=== PATIENT | male | born 1985 | race Hispanic/Latino ===

== ENCOUNTER 2024-06-12 14:12 | Emergency (ER) | payer SELFPAY ==
[2024-06-12 14:13] VITALS: BP 115/82; PULSE 20; RESP 16; TEMP 36.6; O2SAT 100
[2024-06-12 16:52] VITALS: BP 132/86; PULSE 85; RESP 16; TEMP 37.2; O2SAT 99
--- NOTE | 2024-06-12 17:27 | EX.ED.VIS.UR ---
HPI HPI - URI History of Present Illness Chief Complaint: Cold Sx Informant: patient Narrative Narrative: Patient is a 30-year-old male denies any past medical history presenting with 2 days of flulike symptoms. He states started with fever and sore throat. He is also had some intermittent vomiting most recently early this morning. States he has been feeling cold. Daughter came in with similar symptoms the following day. She is also here for evaluation. States his cough is intermittently productive and other times dry. He has some mild body aches. Has been taking medicine for fevers but he is coming back. Also started taking some leftover amoxicillin with no relief. He last had Tylenol at 2 PM. Denies any diarrhea but states his stools have been looser than normal. Denies any blood in his vomit or stool. 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 Patient is not have a primary care doctor. No other complaints or concerns reported at this time. Did not receive his flu shot this year. ROS ROS ED Constitutional Constitutional ED: Reports chills and fever(s) ENT ENT ED: Reports sore throat; Denies ear pain or rhinorrhea Cardiovascular Cardiovascular: Denies chest pain Respiratory/Chest Respiratory/Chest: Reports cough; Denies dyspnea Gastrointestinal Gastrointestinal: Reports nausea and vomiting; Denies abdominal pain, constipation or diarrhea Musculoskeletal Musculoskeletal: Reports myalgias; Denies arthralgias Integumentary Denies rash Neurologic Neurologic: Denies weakness PFSH PFSH Medical History no medical history Home Medications ?Medication ?Instructions ?Recorded ?Last Taken ?Type ibuprofen 600 mg tablet 600 mg PO Q6H PRN PRN fever or 06/12/24 Unknown Rx pain #20 TABLETS ondansetron 4 mg disintegrating 4 mg PO Q8H PRN PRN Nausea #10 tabs 06/12/24 Unknown Rx tablet oseltamivir 75 mg capsule (Tamiflu) 75 mg PO BID 5 days #10 caps 06/12/24 Unknown Rx Allergy/AdvReac Type Severity Reaction Status Date / Time No Known Allergies Allergy Verified 06/12/24 14:14 Family History no significant family his Surgical History no surgical history Social History Smoking Status: Never smoker EXAM Physical Exam Const Vital Signs: 06/12/24 14:13 06/12/24 16:52 06/12/24 16:52 Temperature 97.8 F 98.9 F Temperature Source Temporal Oral Pulse Rate 20 L 85 Respiratory Rate 16 16 Respiratory Pattern Normal Blood Pressure 115/82 H 132/86 H Blood Pressure Mean 93 101 Pulse Ox 100 99 Oxygen Delivery Method Room Air Room Air Positive well nourished and well developed General Appearance ED: well developed and NAD HEENT Reports moist mucous membranes HEENT Narrative: Normal oropharynx. Normal tonsils with no swelling or exudate present. Eyes PERRL Neck no lymphadenopathy and supple Resp normal respiratory effort and clear to auscultation bilaterally Cardio Rate: regular rate Rhythm: regular rhythm GI non-tender and non-distended Extremity normal to inspection Neuro oriented x3 Sensorium / Orientation: alert Motor Exam: Negative for general weakness Psych mental status grossly normal Skin Rashes: no rashes MDM MDM MDM Narrative Medical decision making narrative: Patient evaluated for 2 days of flulike symptoms. Protocol includes viral syndrome, influenza and pneumonia. Protocol COVID swab obtained which is positive for influenza A. Patient is 99% on room air with clear breath sounds. I do not think he has pneumonia and I do not think chest x-ray is indicated at this time. He does look like he does not feel well but given a dose of Motrin. As he is within 48 hours of onset of symptoms will start on Tamiflu. Will also give a prescription for Zofran for further symptom control given his associated nausea. Will be given referral for primary care doctor. Given return precautions. Counseled importance of fever control as well as alternate ibuprofen and Tylenol and pushing fluids. Discharged home in stable condition. 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 Discharge Plan Triage Chief Complaint: Cold Sx ED Provider: Niurka Abreu Dx/Rx/DC Orders Clinical Impression: Influenza A Instructions: ED Influenza (Adult) Prescriptions: New oseltamivir [Tamiflu] 75 mg capsule 75 mg PO BID 5 Days Qty: 10 0RF ondansetron 4 mg tablet,disintegrating 4 mg PO Q8H PRN PRN (Reason: Nausea) Qty: 10 0RF ibuprofen 600 mg tablet 600 mg PO Q6H PRN PRN (Reason: fever or pain) Qty: 20 0RF Primary Care Provider: Care Physician,No Primary Referrals: Serge Crespo [Non-Staff] - Care Physician,No Primary [Primary Care Provider] - Activity Restrictions/Additional Instructions: You have influenza A. This is causing your symptoms. Drink lots of fluids. Alternate ibuprofen (prescribed today) with [id number] Tylenol. You been given a prescription for nausea medicine as well as an antiflu medicine called Tamiflu/oseltamavir. Please follow-up with a primary care doctor. [facility] Print Language: Lao Disposition Disposition: Home, Self Care
[2024-06-12] MEDS: Ibuprofen 600 MG Tablet PO (17:37)
[2024-06-12 18:21] VITALS: BP 134/78; PULSE 64; RESP 18; TEMP 37.1; O2SAT 99
== END 2024-06-12 18:22 | disposition home or self-care (01) ==
PROVIDERS: Emergency Provider Emergency Medicine; Visit Provider Emergency Medicine
DX: J10.1 Influenza due to other identified influenza virus with other respiratory manifestations (principal)
CPT/HCPCS: 87631; 99282